=== PATIENT | female | born 1980 | race Caucasian/White ===

== ENCOUNTER 2020-08-03 07:37 | Emergency (ER) | payer BC ==
[~2020-08-03] VITALS: Ht 165.1 cm; Wt 95.0 kg
--- NOTE | 2020-08-03 08:05 | EKG ---
[address] [address] Test Date: 2020-08-03 Test Time: 07:55:56 Pat Name: JESSICA ODONNELL Department: Room: Gender: F [employer] Assembly Repairer: MIKAYLA : 1980 Requested By: ALIRIO CHANCE Order Number: [id number] Reading MD: Measurements Intervals [place] Rate: 96 P: 28 AK: 156 QRS: 27 QRSD: 84 T: 3 QT: 340 QTc: 436 Interpretive Statements SINUS RHYTHM NORMAL ECG RI6.02 No previous ECG available for comparison
--- NOTE | 2020-08-03 08:06 | PHYS DOC ---
Past History Past Medical History: Anxiety Past Surgical History: , Other Additional Past Surgical Histo: breast reduction, abdominoplasty Alcohol Use: Occasionally General Adult EDM: Chief Complaint: LOSS OF CONSCIOUSNESS HPI: HPI: 39-year-old female presents to the ED with complaints of "I'm tired, nasal congestion and dry cough with chills and feeling really warm for the past 2 days," thought her sxs were related to possible early menopause. Mother reported to rn that pt was hyperventilating then passed out on her bed-had carpal-pedal spasms after. Pt reports feeling "light headed, something didn't feel right," this am, woke up with non bloody emesis on her shirt. No preceding chest pain, dyspnea, orthopnea, back pain or neurologic deficits. Patient reports similar symptoms in 2009, diagnosed with anxiety and syncopeat that time. Takes no routine medications and states she tries to keep her anxiety under control. Lives with parents after from her 1 year ago but reports they're "getting back together and working through things." Denies any alcohol, IV drug use or illicit drugs. Last meal was last night for dinner. Father with history of atrial fibrillation. Patient with no family history of sudden under the age of 50, connective tissue disorder, aortic aneurysm or dissection, ACS or inherited coagulopathy. Flu vaccine not up-to-date. Lives with her parents and 14-year-old daughter-no one sick at home. Accepts covid testing, declines influenza. Review of Systems: Review of Systems: Constitutional: Denies loss of taste or smell Eyes: Denies change in visual acuity or eye drainage HENT: Denies rhinorrhea or sore throat Respiratory: Denies hemoptysis or shortness of breath Cardiovascular: Denies chest pain or edema GI: Denies abdominal pain, bloody stools or diarrhea : Denies dysuria or hematuria Musculoskeletal: Denies back pain or joint pain Integument: Denies rash or diaphoresis Neurologic: Denies headache, neck pain, focal weakness or sensory changes Endocrine: Denies polyuria or polydipsia Lymphatic: Denies swollen glands Psychiatric: Denies depression, SI or HI Allergies: Allergies: Allergies Coded Allergies Type Severity Reaction Last Updated Verified No Known Drug Allergies 08/03/20 No Physical Exam: PE: Constitutional: no acute distress, non-toxic appearance. MAP 63 on arrival, obese HENT: Normocephalic, atraumatic, dry mucous membranes/appears dehydrated Eyes: EOMI, conjunctiva normal, no discharge. Neck: Normal range of motion, supple, Cardiovascular: S1/2 present, HR 90's-100 Lungs & Thorax: Speaking in full sentences, bilateral equal chest rise, no tachypnea or increased work of breathing Abdomen: soft, no tenderness, Skin: Warm, dry, no erythema, no rash. [] Back: No tenderness, no CVA tenderness. [] Extremities: No tenderness, no cyanosis, no edema Neurologic: Alert and oriented X 3, normal motor function, normal sensory function, no focal deficits noted. [] Psychologic: Affect normal, judgement normal, mood-flat affect Current Patient Data: Vital Signs: Vital Signs Date Time Temp Pulse Resp B/P (MAP) Pulse Ox O2 Delivery O2 Flow Rate FiO2 08/03/20 07:40 98.6 98 16 86/51 (63) 93 EKG: EK bpm, no axis deviation, T wave inversion lead III and aVF, no ST elevations or ST depressions Radiology/Procedures: Radiology/Procedures: IMAGING REPORT Signed PATIENT: JESSICA ODONNELL ACCOUNT: [id number] : 1980 LOCATION: ER AGE: 39 SEX: F EXAM STATUS: REG ER ORD. PHYSICIAN: ALIRIO CHANCE DO REASON: syncope PROCEDURE: CHEST AP ONLY XR CHEST 1V CLINICAL INDICATIONS: Syncope. COMPARISON: None available. Findings: No acute lung infiltrate or pleural effusion or pulmonary edema or lung mass or pneumothorax is seen. The heart size, pulmonary vasculature, mediastinum and both rolando are unremarkable. IMPRESSION: No acute radiographic abnormality is seen. Electronically signed by: Mildred Neely MD (08/03/2020 9:07 AM) [id number] DICTATED AND SIGNED BY: MILDRED NEELY MD DATE: 08/03/20 09 CC: AMARIS WIGGINS MD; ALIRIO CHANCE DO ~MTH0 0 Heart Score: Risk Factors: Risk Factors: DM, Current or recent (<one month) smoker, HTN, HLP, family history of CAD, obesity. Risk Scores: Score 0 - 3: 2.5% MACE over next 6 weeks - Discharge Home Score 4 - 6: 20.3% MACE over next 6 weeks - Admit for Clinical Observation Score 7 - 10: 72.7% MACE over next 6 weeks - Early Invasive Strategies Course & Med Decision Making: Course & Med Decision Making Pertinent Labs and Imaging studies reviewed. (See chart for details) COVID-19 CRITERIA: The patient was evaluated during the global COVID-19 pandemic, and that diagnosis was suspected/considered upon their initial presentation. Their evaluation, treatment and testing was consistent with current guidelines for patients who present with complaints or symptoms that may be related to COVID-19. Concern for syncope in the setting of hypotension/dehydration, anxiety and uri (x2d). Labs show leukopenia and mild hypokalemia. Covid test pending. Patient afebrile, no tachycardia. Blood pressure returned to normal after IV fluids. On reevaluation patient with steady gait, well-appearing, with no active complai nts and is requesting to be discharged home. Will discharge home with strict ED return precautions were given for recurrent syncope, head injury, neurologic deficits, chest pain, dyspnea or fever. Encouraged urgent outpatient follow-up with PMD and cardiology. Life-threatening processes were considered but are low suspicion at this time, given history, physical exam and ED workup. Pt was educated on all prescription medications and adverse effects. All patient's questions were answered and pt was stable at time of discharge. Life/limb-threatening differential includes but is not limited to, abdominal aortic aneurysm, aortic dissection, acute coronary syndrome, anemia, valvular disorder, cerebrovascular accident, drug overdose or toxidrome, arrhythmia, pr olonged QT syndrome, hemorrhage, heat illness, intracranial hemorrhage, infection including meningitis/encephalitis/sepsis/toxic shock/myocarditis, vertebrobasilar insufficiency, seizure, medication adverse event, illicit drug use, electrolyte disorder I spoken with the patient and her caregivers. I explained the patient's condition, diagnoses and treatment plan based on the information available to me at this time. I have answered the patient and her caregiver's questions and addressed any concerns. The patient and her caregivers have a good understanding of patient's diagnosis, condition and treatment plan as can be expected at this point. Vital signs have been stable. Patient's condition is stable and appropriate for discharge from the emergency department. Patient will pursue further outpatient evaluation with primary care physician or other designated or consulting physician as outlined in the discharge instructions. The patient and/or caregivers are agreeable to this plan of care and follow-up instructions have been explained in detail. The patient and/or caregivers have received these instructions in written form and have expressed an understanding of the discharge instructions. The patient and/or caregivers are aware that any significant change of condition or worsening of symptoms should prompt immediate return to this or the closest emergency department or call to 911. Percy Disclaimer: Percy Disclaimer: This electronic medical record was generated, in whole or in part, using a voice recognition dictation system. Departure Departure: Impression: Primary Impression: Syncope Additional Impressions: Person under investigation for severe acute respiratory syndrome coronavirus 2 (SARS-CoV-2) infection Hypokalemia Anxiety Disposition: 01 DC HOME SELF CARE/HOMELESS Condition: STABLE Referrals: AMARIS WIGGINS MD (PCP) for repeat potassium check Patient Instructions: Anxiety and Panic Attacks, Hypokalemia, Syncope Additional Instructions: FOLLOW UP WITH CARDIOLOGY: [facility] [id number] [address] [place] [facility] [address] [address] Return to ED immediately if your oxygen level drops below 90% (purchase a pulse oximetry at a medical supply store), difficulties breathing including rapid breathing or increased work of breathing (skin sucking under ribs), chest pain or stroke-like symptoms (facial droop, speech changes, arm/leg weakness). You have been tested for or diagnosed with COVID-19. It is an infection caused by a new type of coronavirus. COVID-19 will cause cold-like or mild flu symptoms in most. It can cause more severe symptoms like problems breathing in some. There is no treatment for COVID-19. The body will clear the infection over time. Self-care will help to ease discomfort. Steps to Take: Self-Care Rest as needed. Healthy habits may help you feel better. Steps include: Choose healthy foods including fruits and vegetables. Drink water throughout the day. Get plenty of sleep each night. If you smoke, try to quit. It may ease breathing. Avoid alcohol. Keep Others Healthy The virus can spread to others. Droplets are released every time you sneeze or cough. The droplets can get into the mouth, nose, or eyes of people near you and lead to infection. To lower the chances of spreading COVID-19 to others: Stay at home until your doctor has said it is safe to leave. If you tested positive this will mean staying isolated until both of the following are true: At least 7 days have passed since the start of illness. You are free of fever for at least 72 hours without the use of medicine. During this time: - Avoid public areas, events, or transportation. Do not return to work or school until your doctor has said it is safe to do so. - Call ahead if you need to go to a medical center. Let them know you may have COVID-19. It will help them guide you where to go. They may also ask you to wear a facemask when you come to the office. - If you call for emergency medical services, let them know you may have COVID- 19. While at home: - Try to avoid close contact with others. Stay about 6 feet away. - If possible, spend most of your time in a separate room from others. - Use a face mask if you will be in close contact with others such as sharing a room or vehicle. - Have someone wipe down common surfaces in the home. Use household night auditor every day on areas like doorknobs, counters, or sinks. - Cough or sneeze into a tissue. Throw the tissue away right after use. If a tissue is not available, cough or sneeze into your elbow. - Wash your hands often. Wash them after sneezing or coughing. Use soap and water and wash for at least 20 seconds. Alcohol based hand drain cleaner plumber can be used if soap and water is not available. - Do not prepare food for others. Avoid sharing personal items like forks, spoons, or toothbrushes. - Avoid close contact with pets while you are sick. There is no evidence of the virus passing to pets. This is a safety step until more is known about this virus. Isolation can be frustrating. Social interaction can help. Keep in touch with friends and family through phone and tech options. You can still interact with others in your home, just keep a safe distance of about 6 feet. Follow-up: Your doctors office will check in with you to see if there are any changes in your health. You may be asked to keep track of symptoms to share with them. They will also let you know when you are clear to be in public again. Problems to Look Out For: Contact your doctor if your recovery is not going as you expect. Get emergency care if you have problems such as: - Trouble breathing - Nonstop chest pain or pressure - Changes in awareness, confusion, or problems waking - Lips or face have bluish color - Worsening of symptoms If you think you have an emergency, call for emergency medical services right away. As taken from [facility],ALIRIO Franco DO Aug 03, 2020 08:06
[2020-08-03] MEDS ORDERED: ONDANSETRON PF 4 MG/2 ML VIAL. IVP ONE ×2 (08:15→11:30)
[2020-08-03] MEDS ORDERED: IV NORMAL SALINE 1,000ML 1,000 ML IV ONE ×3 (08:15→11:15)
[2020-08-03 08:17] LABS: ANION GAP 8 (6-14); BLOOD UREA NITROGEN 16 mg/dL (7-20); BUN/CREATININE RATIO 16 (6-20); CALCIUM 8.3 mg/dL (8.5-10.1); CARBON DIOXIDE 26 mmol/L (21-32); CHLORIDE 101 mmol/L (98-107); GFR 61.4; GLUCOSE 134 mg/dL (70-99); SODIUM 135 mmol/L (136-145)
[2020-08-03 08:19] LABS: BASO % 1 % (0-3); EOS % 0 % (0-3); HEMATOCRIT 41.3 % (36.0-47.0); HEMOGLOBIN 13.7 g/dL (12.0-15.5); LYMPH # 1.3 x10^3/uL (1.0-4.8); LYMPH % 38 % (24-48); MEAN CORPUSCULAR HEMOGLOBIN 29 pg (25-35); MEAN CORPUSCULAR HGB CONC 33 g/dL (31-37); MEAN CORPUSCULAR VOLUME 89 fL (79-100); MONO # 0.2 x10^3/uL (0.0-1.1); MONO % 7 % (0-9); NEUT # 1.8 x10^3uL (1.8-7.7); NEUT % 54 % (31-73); PLATELET COUNT 205 x10^3/uL (140-400); RED BLOOD COUNT 4.65 x10^6/uL (3.50-5.40); RED CELL DISTRIBUTION WIDTH 13.1 % (11.5-14.5); WHITE BLOOD COUNT 3.3 x10^3/uL (4.0-11.0)
[2020-08-03 08:21] LABS: PREG TEST PT QUAL NEGATIVE (NEG)
[2020-08-03 08:33] LABS: ALBUMIN 3.4 g/dL (3.4-5.0); ALBUMIN/GLOBULIN RATIO 0.9 (1.0-1.7); ALK PHOS 64 U/L (46-116); ALT (SGPT) 35 U/L (14-59); AST (SGOT) 39 U/L (15-37); TOTAL BILIRUBIN 0.3 mg/dL (0.2-1.0); TOTAL PROTEIN 7.3 g/dL (6.4-8.2)
--- NOTE | 2020-08-03 09:09 | RAD ---
XR CHEST 1V CLINICAL INDICATIONS: Syncope. COMPARISON: None available. Findings: No acute lung infiltrate or pleural effusion or pulmonary edema or lung mass or pneumothora x is seen. The heart size, pulmonary vasculature, mediastinum and both rolando are unremarkable. IMPRESSION: No acute radiographic abnormality is seen. Electronically signed by: Mychal Neely MD (08/03/2020 9:07 AM) [id number]
[2020-08-03] MEDS ORDERED: POTASSIUM CHLORIDE 20 MEQ TABLET.ER. PO ONE (09:30)
[2020-08-03 10:45] VITALS: BP 113/67
[2020-08-03] MEDS ORDERED: diphenhydrAMINE 50 MG/ML VIAL IVP ONE (11:30)
[2020-08-03 11:38] LABS: AMPHETAMINE/METHAMPHETAMINE NEG (NEG); BARBITURATES NEG (NEG); BENZODIAZEPINES NEG (NEG); CANNABINOIDS NEG (NEG); COCAINE NEG (NEG); METHADONE NEG (NEG); OPIATES NEG (NEG); PHENCYCLIDINE NEG (NEG)
[2020-08-03 11:51] LABS: BACTERIA,URINE MOD /HPF (0-FEW); BILIRUBIN,URINE NEG (NEG); CLARITY,URINE CLOUDY; COLOR,URINE YELLOW; GLUCOSE,URINE NEG (NEG); NITRITE,URINE NEG (NEG); UROBILINOGEN,URINE 0.2 mg/dL (0.2 mg/dL)
[2020-08-03 11:52] LABS: SQUAMOUS EPITHELIAL CELL,UR FEW /LPF
== END 2020-08-03 11:51 | disposition home or self-care (01) ==
LOC: ER 07:37
DX: U07.1 COVID-19 (principal); R55 Syncope and collapse; E87.6 Hypokalemia; F41.9 Anxiety disorder, unspecified
CPT/HCPCS: 36415; 71045; 80053; 80307; 81001; 81025; 82553; 84484; 84703; 85025; 85379; 87086; 93005; 96361; 96374; 99285; C9803; J2405; J7030; U0003